=== PATIENT | female | born 1985 | race Caucasian/White ===

== ENCOUNTER 2016-10-29 13:01 | Emergency (ER) | payer OTHER | END 2016-10-29 14:25 | disposition home or self-care (01) | LOC: ER 13:01 | DX: K91.89 Other postprocedural complications and disorders of digestive system (principal); Z98.84 Bariatric surgery status; R11.2 Nausea with vomiting, unspecified; R10.9 Unspecified abdominal pain; F41.9 Anxiety disorder, unspecified | CPT/HCPCS: 99070; 99282 ==